=== PATIENT | female | born 1985 | race Caucasian/White ===

== ENCOUNTER 2024-07-29 19:46 | Emergency (ER) | payer OTHER ==
[~2024-07-29] VITALS: Ht 167.6 cm; Wt 80.9 kg
[~2024-07-29 19:46] MED LIST: ASPIRIN 81M81 MG/TA2 PO; CLARITIN 1010 MG/TAB PO; NEXIUM 20MG20 MG PO; PROZAC60 MG; SYNTHROID0.2 MG/TAB PO; [UNRECOGNIZED DRUG - OTHER] PO
[2024-07-29 19:51] VITALS: TEMP 98.4
[2024-07-29 20:53] LABS: COLLECTION METHOD CLEAN CATCH
[2024-07-29 20:57] LABS: PH 5.5 (5.0-8.5); URINE APPEARANCE CLEAR (CLEAR/HAZY); URINE BLOOD NEGATIVE (NEGATIVE); URINE COLOR YELLOW (YELLOW); URINE GLUCOSE NEGATIVE (NEGATIVE); URINE KETONE TRACE (NEGATIVE); URINE NITRATE NEGATIVE (NEGATIVE); URINE PROTEIN(semi-quant) NEGATIVE (NEGATIVE); URINE UROBILINOGEN 0.2 E.U/dL (0.2-1.0)
[2024-07-29 22:06] VITALS: BP 121/74; PULSE 64
== END 2024-07-29 22:06 | disposition home or self-care (01) ==
LOC: COL.ER 19:46
PROVIDERS: Personal Emergency Response Attendant
DX: O20.0 Threatened abortion (principal); Z3A.13 13 weeks gestation of pregnancy